=== PATIENT | female | born 1990 | race Caucasian/White ===

== ENCOUNTER 2016-11-09 18:00 | Emergency (ER) | payer OTHER, MEDICAID ==
--- NOTE | 2016-11-09 18:49 | ER Document Report ---
ED Medical Screen (RME) - General Stated Complaint: ABDOMINAL PAIN Time seen by provider: 18:44 Mode of Arrival: Ambulatory Information source: Patient Notes: 25-year-old female presents to ED for pelvic pain for 2 days. She states she has IUD and she can visualize strings hanging out. She has a pinch in her pelvic area. She denies any frequency urgency or pain with urination. Denies any nausea vomiting or diarrhea. Denies any vaginal bleeding or fever. Last menstrual period 10/18/2016. I have greeted and performed a rapid initial assessment of this patient. A comprehensive ED assessment and evaluation of the patient, analysis of test results and completion of medical decision making process will be conducted by an additional ED providers. TRAVEL OUTSIDE OF THE [place] IN LAST 30 DAYS: No - Related Data Allergies/Adverse Reactions: amoxicillin [Amoxicillin] Allergy (Severe, Verified 11/09/16 18:43) Anaphylaxis cefaclor [From Ceclor] Allergy (Severe, Verified 11/09/16 18:43) Anaphylaxis erythromycin base [Erythromycin Base] Allergy (Severe, Verified 11/09/16 18:43) Anaphylaxis Penicillins Allergy (Severe, Verified 11/09/16 18:43) Anaphylaxis latex [Latex] Allergy (Verified 11/09/16 18:43) ondansetron HCl [From Zofran] Allergy (Verified 11/09/16 18:43) Hives meperidine HCl [From Demerol] Adverse Reaction (Mild, Verified 11/09/16 18:43) Abnormal behavior Past Medical History Neurological Medical History: Reports: Hx Migraine, Hx Seizures Renal/ Medical History: Reports: Hx Ovarian Cysts Skin Medical History: Reports Hx Cellulitis, Reports Hx MRSA Infectious Medical History: Reports: Hx MRSA Past Surgical History: Reports: Hx Oral Surgery - wisdom teeth, Hx Tonsillectomy - Immunizations Immunizations up to date: No Hx Diphtheria, Pertussis, Tetanus Vaccination: Yes - UTD Physical Exam - Vital signs Vitals: Temp Pulse Resp BP Pulse Ox 97.9 F 79 16 119/77 98 11/09/16 18:12 11/09/16 18:12 11/09/16 18:12 11/09/16 18:12 11/09/16 18:12 Course - Vital Signs Vital signs: Temp Pulse Resp BP Pulse Ox 97.9 F 79 16 119/77 98 11/09/16 18:12 11/09/16 18:12 11/09/16 18:12 11/09/16 18:12 11/09/16 18:12
[2016-11-09 19:24] LABS: APPEARANCE,URINE CLEAR; BILIRUBIN,URINE NEGATIVE (NEGATIVE); GLUCOSE, URINE NEGATIVE (NEGATIVE); KETONES,URINE NEGATIVE (NEGATIVE); LEUKOCYTE ESTERASE,URINE NEGATIVE (NEGATIVE); NITRITE,URINE NEGATIVE (NEGATIVE); PROTEIN,URINE NEGATIVE (NEGATIVE); URINE SPECIFIC GRAVITY 1.021; UROBILINOGEN,URINE NEGATIVE mg/dL (<2.0)
[2016-11-09 19:25] LABS: ABSOLUTE EOSINOPHILS # (AUTO) 0.1 10^3/uL (0.0-0.6); ABSOLUTE LYMPHOCYTES (AUTO) 2.4 10^3/uL (0.5-4.7); ABSOLUTE MONOCYTES (AUTO) 0.4 10^3/uL (0.1-1.4); ABSOLUTE NEUT (AUTO) 4.3 10^3/uL (1.7-8.2); BASOPHILS % (AUTO) 0.6 % (0-2); EOSINOPHILS % (AUTO) 1.4 % (0-6); HEMATOCRIT 37.7 % (36.0-47.0); HGB HCT DIFFERENCE 1.3; LYMPHOCYTES % (AUTO) 33.5 % (13-45); MEAN CORPUSCULAR HEMOGLOBIN 30.3 pg (27.0-33.4); MEAN CORPUSCULAR HGB CONC 34.5 g/dL (32.0-36.0); MEAN CORPUSCULAR VOLUME 88 fl (80-97); MONOCYTES % (AUTO) 5.3 % (3-13); RED CELL DISTRIBUTION WIDTH 13.3 % (11.5-14.0); SEGMENTED NEUTROPHILS % (AUTO) 59.2 % (42-78); WHITE BLOOD COUNT 7.2 10^3/uL (4.0-10.5)
[2016-11-09 19:52] LABS: ALANINE AMINOTRANSFERASE 53 U/L (9-52); ALBUMIN 4.5 g/dL (3.5-5.0); ALKALINE PHOSPHATASE 97 U/L (38-126); ANION GAP 11 (5-19); ASPARTATE AMINO TRANSFERASE 32 U/L (14-36); BILIRUBIN,TOTAL 0.4 mg/dL (0.2-1.3); BLOOD UREA NITROGEN 15 mg/dL (7-20); CALCIUM 10.2 mg/dL (8.4-10.2); CARBON DIOXIDE 23 mmol/L (22-30); CHLORIDE 106 mmol/L (98-107); CREATININE RESULT 0.75 mg/dL (0.52-1.25); GLUCOSE 89 mg/dL (75-110); POTASSIUM 4.2 mmol/L (3.6-5.0); SODIUM 140.2 mmol/L (137-145); TOTAL PROTEIN 7.4 g/dL (6.3-8.2)
--- NOTE | 2016-11-09 22:57 | ER Document Report ---
ED General - General Chief Complaint: Pelvic Pain Stated Complaint: ABDOMINAL PAIN Time seen by provider: 22:51 - was ventilating Mode of Arrival: Ambulatory Information source: Patient TRAVEL OUTSIDE OF THE [place] IN LAST 30 DAYS: No - HPI Notes: Patient presents with report that she gave on 06/23/2016 and had an IUD placed on 08/24/16. She states that there was a moderate amount of bleeding that occurred when the IUD was placed in the bleeding persisted for little over a month and then she noticed for the last month that she's had a pinching pain occasionally down in the lower pelvic area intermittently. She denies any intercourse since giving . She has had previous IUDs after her other 2 pregnancies and has had 3 vaginal births without other complications. She states that this morning she noticed what felt like the string from the IUD coming out of the vaginal area and she questions whether not the IUD is been disrupted. She denies any other abdominal pain besides mild suprapubic pinching. She reports no fever, chills, vaginal discharge, constipation, diarrhea. - Related Data Allergies/Adverse Reactions: amoxicillin [Amoxicillin] Allergy (Severe, Verified 11/09/16 18:43) Anaphylaxis cefaclor [From Ceclor] Allergy (Severe, Verified 11/09/16 18:43) Anaphylaxis erythromycin base [Erythromycin Base] Allergy (Severe, Verified 11/09/16 18:43) Anaphylaxis Penicillins Allergy (Severe, Verified 11/09/16 18:43) Anaphylaxis latex [Latex] Allergy (Verified 11/09/16 18:43) ondansetron HCl [From Zofran] Allergy (Verified 11/09/16 18:43) Hives meperidine HCl [From Demerol] Adverse Reaction (Mild, Verified 11/09/16 18:43) Abnormal behavior Past Medical History - General Information source: Patient - Social History Smoking Status: Never Smoker Chew tobacco use (# tins/day): No Frequency of alcohol use: None Drug Abuse: None Family History: Arthritis, CAD, CVA, DM, Hyperlipidemia, Hypertension, Malignancy Patient has suicidal ideation: No Patient has homicidal ideation: No Neurological Medical History: Reports: Hx Migraine, Hx Seizures Renal/ Medical History: Reports: Hx Ovarian Cysts. Denies: Hx Peritoneal Dialysis Skin Medical History: Reports Hx Cellulitis, Reports Hx MRSA Infectious Medical History: Reports: Hx MRSA Past Surgical History: Reports: Hx Oral Surgery - wisdom teeth, Hx Tonsillectomy - Immunizations Immunizations up to date: No Hx Diphtheria, Pertussis, Tetanus Vaccination: Yes - UTD Review of Systems - Review of Systems Notes: REVIEW OF SYSTEMS: CONSTITUTIONAL : Denies fever, chills, or sweats. Denies recent illness. EENT: Denies eye, ear, throat, or mouth pain or symptoms. Denies nasal or sinus congestion or discharge. Denies throat, tongue, or mouth swelling or difficulty swallowing. CARDIOVASCULAR: Denies chest pain. Denies palpitations or racing or irregular heart beat. Denies ankle edema. RESPIRATORY: Denies cough, cold, or chest congestion. Denies shortness of breath, difficulty breathing, or wheezing. GASTROINTESTINAL: Denies distention. Denies nausea, vomiting, or diarrhea. Denies blood in vomitus, stools, or per rectum. Denies black, tarry stools. Denies constipation. GENITOURINARY: Denies difficulty urinating, painful urination, burning, frequency, blood in urine, or discharge. FEMALE GENITOURINARY: Denies vaginal bleeding, heavy or abnormal periods, irregular periods. Denies vaginal discharge or odor. MUSCULOSKELETAL: Denies back or neck pain or stiffness. Denies joint pain or swelling. SKIN: Denies rash, lesions or sores. HEMATOLOGIC : Denies easy bruising or bleeding. LYMPHATIC: Denies swollen, enlarged glands. NEUROLOGICAL: Denies confusion or altered mental status. Denies passing out or loss of consciousness. Denies dizziness or lightheadedness. Denies headache. Denies weakness or paralysis or loss of use of either side. Denies problems with gait or speech. Denies sensory loss, numbness, or tingling. Denies seizures. PSYCHIATRIC: Denies anxiety or stress. Denies depression, suicidal ideation, or homicidal ideation. ALL OTHER SYSTEMS REVIEWED AND NEGATIVE. Dictation was performed using [employer] voice recognition software Physical Exam - Vital signs Vitals: Temp Pulse Resp BP Pulse Ox 97.9 F 79 16 119/77 98 11/09/16 18:12 11/09/16 18:12 11/09/16 18:12 11/09/16 18:12 11/09/16 18:12 - Notes Notes: PHYSICAL EXAMINATION: GENERAL: Well-appearing, well-nourished and in no acute distress. HEAD: Atraumatic, normocephalic. EYES: Pupils equal round and reactive to light, extraocular movements intact, conjunctiva are normal. ENT: Nares patent, oropharynx clear without exudates. Moist mucous membranes. NECK: Normal range of motion, supple without lymphadenopathy LUNGS: Breath sounds clear to auscultation bilaterally and equal. No wheezes rales or rhonchi. HEART: Regular rate and rhythm without murmurs ABDOMEN: Soft nondistended abdomen. No guarding, no rebound. No masses appreciated. Very mild suprapubic discomfort noted on exam. Female : Cervix is benign. There is minimal clear discharge noted. There is mild cervical motion tenderness. The patient does have IUD line which is somewhat long and does extend to the edge of the vaginal opening, but otherwise is appropriate and location. No adnexal mass or tenderness noted. Normal external female genitalia noted otherwise. Musculoskeletal: Normal range of motion, no pitting or edema. No cyanosis. NEUROLOGICAL: Cranial nerves grossly intact. Normal speech, normal gait. Normal sensory, motor exams PSYCH: Normal mood, normal affect. SKIN: Warm, Dry, normal turgor, no rashes or lesions noted. Course - Re-evaluation Re-evalutation: 11/10/16 01:11 Patient was given doxycycline by mouth to cover for potential PID. Gonorrhea chlamydial test was taken. No evidence for UTI. Ultrasound showed no significant ovarian pathology and showed appropriate location of the IUD. There is no suggestion for pelvic breech or partial dislocation. No evidence for anemia, sepsis, electrolyte imbalance or diabetes. - Vital Signs Vital signs: Temp Pulse Resp BP Pulse Ox 97.9 F 79 16 119/77 98 11/09/16 18:12 11/09/16 18:12 11/09/16 18:12 11/09/16 18:12 11/09/16 18:12 - Laboratory Result Diagrams: 11/09/16 18:54 11/09/16 18:54 Laboratory results interpreted by me: 11/09/16 18:54 ALT 53 H Discharge - Discharge Clinical Impression: PID (acute pelvic inflammatory disease) Condition: Stable Disposition: HOME, SELF-CARE Instructions: Antibiotic Therapy ([facility]), Doxycycline ([facility]), Pelvic Inflammatory Disease ([facility]) Additional Instructions: Return to the ED in case of fever, severe pain. Do not breast-feed while taking doxycycline. Prescriptions: Naproxen 500 mg PO Q12HP PRN #30 tablet PRN Reason: Doxycycline Hyclate 100 mg PO BID #20 capsule
[2016-11-10] MEDS ORDERED: DOXYCYCLINE HYCLATE 100 MG TABLET PO ONE (01:09)
[2016-11-10 01:34] VITALS: BP 121/75
[2016-11-10 02:42] LABS: CHLAM PCR NOT DETECTED (NOT DETECT)
== END 2016-11-10 01:25 | disposition home or self-care (01) ==
LOC: ER 18:00
DX: N73.0 Acute parametritis and pelvic cellulitis (principal); R10.2 Pelvic and perineal pain; Z97.5 Presence of (intrauterine) contraceptive device; Z88.8 Allergy status to other drugs, medicaments and biological substances; Z87.892 Personal history of anaphylaxis; Z88.1 Allergy status to other antibiotic agents; Z88.0 Allergy status to penicillin; Z91.040 Latex allergy status; Z87.42 Personal history of other diseases of the female genital tract; Z86.14 Personal history of Methicillin resistant Staphylococcus aureus infection
CPT/HCPCS: 36415; 76856; 80053; 81001; 84703; 85025; 87491; 87591; 99284

== ENCOUNTER 2018-01-14 15:28 | Emergency (ER) | payer MEDICAID, OTHER ==
--- NOTE | 2018-01-14 15:54 | ER Document Report ---
ED Medical Screen (RME) - General Chief Complaint: Breast Lump Stated Complaint: LEFT BREAST PROBLEM Time Seen by Provider: 01/14/18 15:54 Mode of Arrival: Ambulatory Information source: Patient Notes: 27-year-old well-appearing female presents to the emergency room with some swelling and in the left axilla/lateral breast area. She denies fever, chills, nausea vomiting TRAVEL OUTSIDE OF THE [place] IN LAST 30 DAYS: No - Related Data Allergies/Adverse Reactions: amoxicillin [Amoxicillin] Allergy (Severe, Verified 01/14/18 15:29) Anaphylaxis cefaclor [From Ceclor] Allergy (Severe, Verified 01/14/18 15:29) Anaphylaxis erythromycin base [Erythromycin Base] Allergy (Severe, Verified 01/14/18 15:29) Anaphylaxis Penicillins Allergy (Severe, Verified 01/14/18 15:29) Anaphylaxis latex [Latex] Allergy (Verified 01/14/18 15:29) ondansetron HCl [From Zofran] Allergy (Verified 01/14/18 15:29) Hives meperidine HCl [From Demerol] Adverse Reaction (Mild, Verified 01/14/18 15:29) Abnormal behavior Past Medical History - Social History Chew tobacco use (# tins/day): No Frequency of alcohol use: None Drug Abuse: None Neurological Medical History: Reports: Hx Migraine, Hx Seizures Renal/ Medical History: Reports: Hx Ovarian Cysts. Denies: Hx Peritoneal Dialysis Skin Medical History: Reports Hx Cellulitis, Reports Hx MRSA Infectious Medical History: Reports: Hx MRSA Past Surgical History: Reports: Hx Oral Surgery - wisdom teeth, Hx Tonsillectomy - Immunizations Immunizations up to date: No Hx Diphtheria, Pertussis, Tetanus Vaccination: Yes - UTD Physical Exam - Vital signs Vitals: Temp Pulse Resp BP Pulse Ox 98.9 F 92 18 133/82 H 97 01/14/18 15:33 01/14/18 15:33 01/14/18 15:33 01/14/18 15:33 01/14/18 15:33 Course - Vital Signs Vital signs: Temp Pulse Resp BP Pulse Ox 98.9 F 92 18 133/82 H 97 01/14/18 15:33 01/14/18 15:33 01/14/18 15:33 01/14/18 15:33 01/14/18 15:33
[2018-01-14] MEDS ORDERED: IBUPROFEN 800 MG TABLET PO ONE (16:31)
--- NOTE | 2018-01-14 16:46 | ER Document Report ---
ED General - General Chief Complaint: Breast Lump Stated Complaint: LEFT BREAST PROBLEM Time Seen by Provider: 01/14/18 15:54 Mode of Arrival: Ambulatory TRAVEL OUTSIDE OF THE [place] IN LAST 30 DAYS: No - HPI Notes: Patient is a 27-year-old female presents to the emergency department with report of a 6 month history of a mass in the lateral superior quadrant of the breast almost extending to the axillary region. The patient states that several days ago she brought her arm in and may have put pressure upon the mass and she has had increasing pain through the area of the lateral superior breast extending into the lateral aspect of the breast. She denies any erythema to the region. She reports no fever or chills or chest pain or nausea or vomiting or dyspnea. Patient does report a 10 pound weight loss unexplained. There is a strong family history of breast cancer on the patient's father's side , stating that the father is currently battling breast cancer now and the paternal grand mother is currently dying from breast cancer. She has been told that the breast cancer is receptor positive, but she does not know other specifics. No cat scratches or exposure to cats. No lesions of the skin or any problem with the left upper extremity or fingernails. - Related Data Allergies/Adverse Reactions: amoxicillin [Amoxicillin] Allergy (Severe, Verified 01/14/18 15:29) Anaphylaxis cefaclor [From Ceclor] Allergy (Severe, Verified 01/14/18 15:29) Anaphylaxis erythromycin base [Erythromycin Base] Allergy (Severe, Verified 01/14/18 15:29) Anaphylaxis Penicillins Allergy (Severe, Verified 01/14/18 15:29) Anaphylaxis latex [Latex] Allergy (Verified 01/14/18 15:29) ondansetron HCl [From Zofran] Allergy (Verified 01/14/18 15:29) Hives meperidine HCl [From Demerol] Adverse Reaction (Mild, Verified 01/14/18 15:29) Abnormal behavior Past Medical History - General Information source: Patient - Social History Smoking Status: Former Smoker Chew tobacco use (# tins/day): No Frequency of alcohol use: None Drug Abuse: None Lives with: Family Family History: Arthritis, CAD, CVA, DM, Hyperlipidemia, Hypertension, Malignancy, Other - Breast cancer history see above. Patient has suicidal ideation: No Patient has homicidal ideation: No Neurological Medical History: Reports: Hx Migraine, Hx Seizures Renal/ Medical History: Reports: Hx Ovarian Cysts. Denies: Hx Peritoneal Dialysis Skin Medical History: Reports Hx Cellulitis, Reports Hx MRSA Infectious Medical History: Reports: Hx MRSA Past Surgical History: Reports: Hx Oral Surgery - wisdom teeth, Hx Tonsillectomy - Immunizations Immunizations up to date: No Hx Diphtheria, Pertussis, Tetanus Vaccination: Yes - UTD Review of Systems - Review of Systems Notes: REVIEW OF SYSTEMS: CONSTITUTIONAL : Denies fever, chills, or sweats. Minor weight loss. EENT: Denies eye, ear, throat, or mouth pain or symptoms. Denies nasal or sinus congestion or discharge. Denies throat, tongue, or mouth swelling or difficulty swallowing. CARDIOVASCULAR: Denies chest pain. Denies palpitations or racing or irregular heart beat. Denies ankle edema. RESPIRATORY: Denies cough, cold, or chest congestion. Denies shortness of breath, difficulty breathing, or wheezing. GASTROINTESTINAL: Denies abdominal pain or distention. Denies nausea, vomiting , or diarrhea. Denies blood in vomitus, stools, or per rectum. Denies black, tarry stools. Denies constipation. GENITOURINARY: Denies difficulty urinating, painful urination, burning, frequency, blood in urine, or discharge. FEMALE GENITOURINARY: Denies vaginal bleeding, heavy or abnormal periods, irregular periods. Denies vaginal discharge or odor. MUSCULOSKELETAL: Denies back or neck pain or stiffness. Denies joint pain or swelling. SKIN: Denies rash, lesions or sores. HEMATOLOGIC : Denies easy bruising or bleeding. LYMPHATIC: No other lymph node swelling besides the lateral breast into the axillary region. NEUROLOGICAL: Denies confusion or altered mental status. Denies passing out or loss of consciousness. Denies dizziness or lightheadedness. Denies headache. Denies weakness or paralysis or loss of use of either side. Denies problems with gait or speech. Denies sensory loss, numbness, or tingling. Denies seizures. PSYCHIATRIC: Denies anxiety or stress. Denies depression, suicidal ideation, or homicidal ideation. ALL OTHER SYSTEMS REVIEWED AND NEGATIVE. Dictation was performed using [employer] voice recognition software Physical Exam - Vital signs Vitals: Temp Pulse Resp BP Pulse Ox 98.9 F 92 18 133/82 H 97 01/14/18 15:33 01/14/18 15:33 01/14/18 15:33 01/14/18 15:33 01/14/18 15:33 - Notes Notes: PHYSICAL EXAMINATION: GENERAL: Well-appearing, well-nourished and in no acute distress. HEAD: Atraumatic, normocephalic. EYES: Pupils equal round and reactive to light, extraocular movements intact, conjunctiva are normal. ENT: Nares patent, oropharynx clear without exudates. Moist mucous membranes. NECK: Normal range of motion, supple without lymphadenopathy LUNGS: Breath sounds clear to auscultation bilaterally and equal. No wheezes rales or rhonchi. HEART: Regular rate and rhythm without murmurs ABDOMEN: Soft, nontender, nondistended abdomen. No guarding, no rebound. No masses appreciated. Female : deferred Musculoskeletal: Normal range of motion, no pitting or edema. No cyanosis. NEUROLOGICAL: Cranial nerves grossly intact. Normal speech, normal gait. Normal sensory, motor exams PSYCH: Normal mood, normal affect. SKIN: Warm, Dry, normal turgor, no rashes or lesions noted. No lesions on the patient's left upper extremity. The patient does have some mild pain to the left lateral breast on exam, but no obvious lesions located the year but there is what appears to be a mass versus prominence of the breast tissue left lateral tail of the breast extending into the axillary region. There is no erythema to this location. There is no crepitance or induration. No other breast lesions or masses identified. No nipple discharge or dimpling. Examination on the right side shows no mass or other abnormality. No supraclavicular lymphadenopathy no supratrochlear adenopathy. No other adenopathy identified anywhere. Course - Re-evaluation Re-evalutation: 01/14/18 18:50 Lab work and other studies were all negative on the patient. CT scan was negative. Given the patient's risk factors for breast cancer due to her family history, it was recommended to the patient that she has a follow-up mammogram performed. There is no evidence for lymphomatous state or obvious cancer or mass or sepsis or abscess. There is no erythema to the region. We will cover the patient with clindamycin and ibuprofen and limit motion of the arm and have her follow-up with her regular practitioner within 2 weeks. - Vital Signs Vital signs: Temp Pulse Resp BP Pulse Ox 98.9 F 92 18 133/82 H 97 01/14/18 15:33 01/14/18 15:33 01/14/18 15:33 01/14/18 15:33 01/14/18 15:33 - Laboratory Result Diagrams: 01/14/18 17:35 01/14/18 17:35 Discharge - Discharge Clinical Impression: Lymphadenopathy, axillary Condition: Stable Disposition: HOME, SELF-CARE Instructions: Lymphadenopathy ([facility]), Family Physicians / Practices Additional Instructions: You need a follow-up mammogram. Return to the emergency department in case of fever, redness, worsening swelling , severe pain. Avoid heavy lifting and other activity with the left arm until the swelling resolves. Prescriptions: Clindamycin HCl 300 mg PO TID #24 capsule Ibuprofen [Motrin 800 mg Tablet] 800 mg PO Q8H PRN #30 tab PRN Reason:
[2018-01-14 17:48] LABS: ABSOLUTE EOSINOPHILS # (AUTO) 0.1 10^3/uL (0.0-0.6); ABSOLUTE LYMPHOCYTES (AUTO) 1.9 10^3/uL (0.5-4.7); ABSOLUTE MONOCYTES (AUTO) 0.3 10^3/uL (0.1-1.4); ABSOLUTE NEUT (AUTO) 5.2 10^3/uL (1.7-8.2); BASOPHILS % (AUTO) 0.6 % (0-2); EOSINOPHILS % (AUTO) 1.2 % (0-6); HEMATOCRIT 37.8 % (36.0-47.0); LYMPHOCYTES % (AUTO) 25.4 % (13-45); MEAN CORPUSCULAR HEMOGLOBIN 29.9 pg (27.0-33.4); MEAN CORPUSCULAR HGB CONC 34.4 g/dL (32.0-36.0); MEAN CORPUSCULAR VOLUME 87 fl (80-97); MONOCYTES % (AUTO) 4.4 % (3-13); PLATELET COUNT 270 10^3/uL (150-450); RED BLOOD COUNT 4.36 10^6/uL (3.72-5.28); SEGMENTED NEUTROPHILS % (AUTO) 68.4 % (42-78); TOTAL CELLS COUNTED % (AUTO) 100 %; WHITE BLOOD COUNT 7.7 10^3/uL (4.0-10.5)
[2018-01-14 18:04] LABS: ALANINE AMINOTRANSFERASE 29 U/L (9-52); ALBUMIN 4.4 g/dL (3.5-5.0); ALKALINE PHOSPHATASE 98 U/L (38-126); ANION GAP 11 (5-19); ASPARTATE AMINO TRANSFERASE 20 U/L (14-36); BILIRUBIN,DIRECT 0.2 mg/dL (0.0-0.4); BILIRUBIN,TOTAL 0.2 mg/dL (0.2-1.3); BLOOD UREA NITROGEN 16 mg/dL (7-20); CALCIUM 9.8 mg/dL (8.4-10.2); CARBON DIOXIDE 26 mmol/L (22-30); CHLORIDE 106 mmol/L (98-107); GLUCOSE 89 mg/dL (75-110); POTASSIUM 4.1 mmol/L (3.6-5.0); SODIUM 143.2 mmol/L (137-145); TOTAL PROTEIN 7.2 g/dL (6.3-8.2)
--- NOTE | 2018-01-14 18:12 | RADIOLOGY REPORT (SQ) ---
EXAM DESCRIPTION: CT CHEST WITH COMPLETED DATE/TIME: 01/14/2018 6:02 pm REASON FOR STUDY: L axillary / lateral L breast mass COMPARISON: None. TECHNIQUE: CT scan of the chest performed using helical scanning technique with dynamic intravenous contrast injection. Images reviewed with lung, soft tissue and bone windows. Reconstructed coronal and sagittal MPR images reviewed. All images stored on PACS. All CT scanners at this facility use dose modulation, iterative reconstruction, and/or weight based d osing when appropriate to reduce radiation dose to as low as reasonably achievable (ALARA). [facility]: Dose Right [facility]: CareDose [facility]: Dose Right [facility]: Teradose 4D [facility]: [employer] Math CONTRAST TYPE AND DOSE: 100 mL Isovue 370- low osmolar. RENAL FUNCTION: None required. The patient is less than 50 years old. RADIATION DOSE: CT Rad equipment meets quality standard of care and radiation dose reduction techniq ues were employed. CTDIvol: 19.1 mGy. DLP: 715 mGy-cm. . LIMITATIONS: None. FINDINGS: LUNGS AND PLEURA: No opacities, nodules, masses. No pneumothorax. No effusions. HILAR AND MEDIASTINAL STRUCTURES: No identified masses or abnormal nodes. HEART AND VASCULAR STRUCTURES: No aneurysm or dissection. No central pulmonary emboli. No pericardi al effusion. HARDWARE: None in the chest. UPPER ABDOMEN: No significant findings. Limited exam. THYROID AND OTHER SOFT TISSUES: No masses. No adenopathy. BONES: No significant finding. OTHER: No other significant finding. IMPRESSION: No abnormality identified. TECHNICAL DOCUMENTATION: JOB ID: [id number] [place]-72 Quality ID # [id number]: Final reports with documentation of one or more dose reduction techniques (e.g., Au tomated exposure control, adjustment of the mA and/or kV according to patient size, use of iterative reconstruction technique) 2010 [employer]- All Rights Reserved Reading location - IP/workstation name: [employer]
[2018-01-14 19:12] VITALS: BP 118/65
== END 2018-01-14 19:12 | disposition home or self-care (01) ==
LOC: ER 15:28
DX: R59.0 Localized enlarged lymph nodes (principal); Z87.891 Personal history of nicotine dependence
CPT/HCPCS: 99284; 36415; 85025; 81025; 80053; 71260; J3490

== ENCOUNTER 2018-11-04 19:06 | Emergency (ER) | payer MEDICAID, OTHER ==
--- NOTE | 2018-11-04 21:30 | ER Document Report ---
ED Medical Screen (RME) - General Chief Complaint: Passed Out Prior to Arrival Stated Complaint: SYNCOPE Time Seen by Provider: 11/04/18 21:19 Notes: Patient is a 27-year-old female presents to the emergency department for near syncopal episode. States she felt very lightheaded and dizzy and went to sit down. States she missed the chair and her friend caught her lying her down on the ground. Patient states she continued to feel very dizzy and lightheaded. Patient states at this point time her only complaint is generalized blurred vision and a headache. Patient states she does have a past medical history of seizures but is denying any seizure-like activity. GENERAL: Alert, interacts well. No acute distress. EXTREMITIES: Moves all 4 extremities spontaneously. No edema, normal radial and dorsalis pedis pulses bilaterally. No cyanosis. 5 out of 5 strength all 4 extremities NEUROLOGICAL: Alert and oriented x3. Normal speech. I have greeted and performed a rapid initial assessment of this patient. A comprehensive ED assessment and evaluation of the patient, analysis of test results and completion of the medical decision making process will be conducted by additional ED providers. TRAVEL OUTSIDE OF THE [place] IN LAST 30 DAYS: No - Related Data Allergies/Adverse Reactions: amoxicillin [Amoxicillin] Allergy (Severe, Verified 01/14/18 15:29) Anaphylaxis cefaclor [From Ceclor] Allergy (Severe, Verified 01/14/18 15:29) Anaphylaxis erythromycin base [Erythromycin Base] Allergy (Severe, Verified 01/14/18 15:29) Anaphylaxis Penicillins Allergy (Severe, Verified 01/14/18 15:29) Anaphylaxis latex [Latex] Allergy (Verified 01/14/18 15:29) ondansetron HCl [From Zofran] Allergy (Verified 01/14/18 15:29) Hives meperidine HCl [From Demerol] Adverse Reaction (Mild, Verified 01/14/18 15:29) Abnormal behavior Past Medical History Neurological Medical History: Reports: Hx Migraine, Hx Seizures Renal/ Medical History: Reports: Hx Ovarian Cysts. Denies: Hx Peritoneal Dialysis Skin Medical History: Reports Hx Cellulitis, Reports Hx MRSA Infectious Medical History: Reports: Hx MRSA Past Surgical History: Reports: Hx Oral Surgery - wisdom teeth, Hx Tonsillectomy - Immunizations Immunizations up to date: No Hx Diphtheria, Pertussis, Tetanus Vaccination: Yes - UTD
[2018-11-04 22:45] LABS: APPEARANCE,URINE SLIGHTLY-CLOUDY; BILIRUBIN,URINE NEGATIVE (NEGATIVE); COLOR,URINE YELLOW; GLUCOSE, URINE NEGATIVE (NEGATIVE); KETONES,URINE NEGATIVE (NEGATIVE); LEUKOCYTE ESTERASE,URINE MODERATE (NEGATIVE); NITRITE,URINE NEGATIVE (NEGATIVE); PROTEIN,URINE NEGATIVE (NEGATIVE); URINE SPECIFIC GRAVITY 1.027; UROBILINOGEN,URINE NEGATIVE mg/dL (<2.0)
--- NOTE | 2018-11-04 22:50 | ER Document Report ---
ED General - General Chief Complaint: Passed Out Prior to Arrival Stated Complaint: SYNCOPE Time Seen by Provider: 11/04/18 21:19 Primary Care Provider: SUSU SIMON MD [NO LOCAL MD] - Follow up in 3-5 days Notes: Patient is a 27-year-old female who presents with complaint of a near syncopal episode. She was walking and then started to pass out and go down. She says she did not pass out all the way. She said that for 2 weeks she has had a ongoing headache. Is gradually worsened over the course of 2 weeks. Is behind her eyes. She is also noticed blurred vision with both near and far vision of both eyes. She does wear glasses. She says the same glasses she is been wearing since she was 18 and is not had her eyes rechecked. No focal weakness or numbness into the extremities. No chest pain. No recent trauma or injuries to the head. No neck pain or stiffness. No other complaints at this time. No recent fevers or infections. TRAVEL OUTSIDE OF THE [place] IN LAST 30 DAYS: No - Related Data Allergies/Adverse Reactions: amoxicillin [Amoxicillin] Allergy (Severe, Verified 01/14/18 15:29) Anaphylaxis cefaclor [From Ceclor] Allergy (Severe, Verified 01/14/18 15:29) Anaphylaxis erythromycin base [Erythromycin Base] Allergy (Severe, Verified 01/14/18 15:29) Anaphylaxis Penicillins Allergy (Severe, Verified 01/14/18 15:29) Anaphylaxis latex [Latex] Allergy (Verified 01/14/18 15:29) ondansetron HCl [From Zofran] Allergy (Verified 01/14/18 15:29) Hives meperidine HCl [From Demerol] Adverse Reaction (Mild, Verified 01/14/18 15:29) Abnormal behavior Past Medical History - Social History Smoking Status: Unknown if Ever Smoked Frequency of alcohol use: None Drug Abuse: None Family History: Arthritis, CAD, CVA, DM, Hyperlipidemia, Hypertension, Malignancy, Other - Breast cancer history see above. Patient has suicidal ideation: No Patient has homicidal ideation: No Neurological Medical History: Reports: Hx Migraine, Hx Seizures Renal/ Medical History: Reports: Hx Ovarian Cysts. Denies: Hx Peritoneal Dialysis Skin Medical History: Reports Hx Cellulitis, Reports Hx MRSA Infectious Medical History: Reports: Hx MRSA Past Surgical History: Reports: Hx Oral Surgery - wisdom teeth, Hx Tonsillectomy - Immunizations Immunizations up to date: No Hx Diphtheria, Pertussis, Tetanus Vaccination: Yes - UTD Review of Systems - Review of Systems Notes: My Normal Review Basic REVIEW OF SYSTEMS: CONSTITUTIONAL : Denies fever, chills, or sweats. Denies recent illness. EENT: Blurred vision MUSCULOSKELETAL: Denies neck or back pain or joint pain or swelling. SKIN: Denies rash or skin lesions NEUROLOGICAL: Near syncopal episode. Has a headache. denies weakness or p aralysis or loss of use of either side. Denies problems with gait or speech. Denies sensory or motor loss. ALL OTHER SYSTEMS REVIEWED AND NEGATIVE. Physical Exam - Vital signs Vitals: Temp Pulse Resp BP Pulse Ox 98.1 F 73 16 125/86 H 100 11/04/18 20:01 11/04/18 20:01 11/04/18 20:01 11/04/18 20:01 11/04/18 20:01 - Notes Notes: General Appearance: Well nourished, alert, cooperative, no acute distress, no obvious discomfort. Well-appearing. Vitals: reviewed, See vital signs table. Head: no swelling or tenderness to the head Eyes: PERRL, EOMI, Conjuctiva clear Mouth: No decreasd moisture Throat: No tonsillar inflammation, No airway obstruction, No lymphadenopathy Neck: Supple, no neck tenderness Lungs: No wheezing, No rales, No rhonci, No accessory muscle use, good air exchange bilaterally. Heart: Normal rate, Regular rythm, No murmur, no rub Abdomen: Normal BS, soft, No rigidity, No abdominal tenderness, No guarding, no rebound, no abdominal masses, no organomegaly Extremities: strength 5/5 in all extremities, good pulses in all extremities, no swelling or tenderness in the extremities, no edema. Skin: warm, dry, appropriate color, no rash Neuro: speech clear, oriented x 3, normal affect, responds appropriately to questions. Cranial nerves II through XII are intact except for some blurred vision. Distal sensation intact in all extremities. Normal gait. Normal strength in all extremities. Normal coordination of movement of extremities. Course - Re-evaluation Re-evalutation: 11/05/18 01:29 Lumbar puncture performed. Patient initially did have will be a traumatic tap that there is a small of blood initially when she is of first came out as it was the third attempt of getting the patient's lumbar puncture. This quickly cleared. Opening pressure was 25. Drained off approximately 14 mL's of CSF. This brought her pressure down to 20. Patient now lying flat on her back is comfortable at this time. No complications. 11/05/18 01:29 11/05/18 02:54 11/05/18 03:00 Patient CSF on tube 1 did show large amount of red blood cells as expected due to what I expect was a traumatic tap. By tube 4 red blood cells were less than 10. I do not suspect subarachnoid hemorrhage. CT scan is normal. Her opening pressure was 25. This is at the very borderline for potential benign intracranial hypertension however is not at a level high and therefore expect it to be causing her to have blurred vision. She says her headache is just a little bit improved after draining the fluid and pressure down to 20. She is seen by Dr. Simon in the past due to history of possible seizures. I will refer her back to Dr. Aldana for continued workup of her headaches. Also encouraged her to see cloth mercerizing supervisor as she has been wearing the same prescription of her glasses for 9 years and therefore this could be contributing to her headache and blurred vision as well. Encouraged her to return to ER medially if she has severe worsening headache, vomiting, or she feels that she is worsening in any way. Patient agrees with plan and will be discharged home. Dictation of this chart was performed using voice recognition software; therefore, there may be some unintended grammatical errors. - Vital Signs Vital signs: Temp Pulse Resp BP Pulse Ox 98.3 F 72 20 137/83 H 100 11/05/18 03:14 11/05/18 03:14 11/05/18 03:14 11/05/18 03:14 11/05/18 03:14 - Laboratory Laboratory results interpreted by me: 11/04/18 22:20 Ur Leukocyte Esterase MODERATE H - EKG Interpretation by Me Additional EKG results interpreted by me: 11/04/18 22:50 EKG is reviewed and interpreted by me. EKG shows normal sinus rhythm with a rate of [address] segment elevation or depression. No ischemic T wave inversions. MN interval, QRS duration, QT intervals are within normal range. No old EKG available for comparison. Procedures - Lumbar Puncture Lumbar puncture Consent obtained: Yes Lumbar puncture pre-procedure: Chloraprep applied Patient position: Lying Needle size: 25 Lumbar puncture location: L3-L4 Anesthetic type: 1% Lidocaine mL's of anesthetic: 5 Amount/type of drainage: 14 clear CSF Number of attempts: 1 Complications: No Discharge - Discharge Clinical Impression: Blurred vision, bilateral, Near syncope Headache Qualifiers: Headache type: unspecified Headache chronicity pattern: unspecified pattern Intractability: intractable Qualified Code(s): R51 - Headache Condition: Good Disposition: HOME, SELF-CARE Additional Instructions: The exact cause of your headaches, blurred vision, and episode where you almost passed out is not 100% clear. CT scan of your head was normal. We did do lumbar puncture to look to see if you have elevated spinal fluid pressure. Your pressure is just slightly elevated but not to the extent that we expect would cause blurred vision. Please follow-up closely with the cloth mercerizing supervisor to have your eyes rechecked to see if you need a change in the prescription of your glasses. Please follow back up with Dr. Simon for reevaluation and further workup of her headaches. Please return to ER if you have worsening headaches, vomiting, recurrent episodes of passing out, or if you feel that you are worse in any way. Do not drive or operate machinery when taking the Fioricet as it can cause some sleepiness. Prescriptions: Butalb/Acetaminophen/Caffeine [Fioricet (50-325-40 mg) Tablet] 1 tab PO Q8HP PRN #10 tab PRN Reason: headache Forms: Return to Work Referrals: SUSU SIMON MD [NO LOCAL MD] - Follow up in 3-5 days
--- NOTE | 2018-11-04 23:00 | RADIOLOGY REPORT (SQ) ---
EXAM DESCRIPTION: CT HEAD WITHOUT IV CONTRAST COMPLETED DATE/TME: 11/04/2018 21:28 CLINICAL HISTORY: 27 years, Female, near syncope Blurred vision COMPARISON: 11/07/2014 CT brain TECHNIQUE: 187 Images stored on PACS. All CT scanners at this facility use dose modulation, iterative reconstruction, and/or weight based dosing when appropriate to reduce radiation dose to as low as reasonably achievable (ALARA). [facility]: Dose Right [facility]: CareDose [facility]: Dose Right [facility]: Teradose 4D [facility]: [employer] LIMITATIONS: None. FINDINGS: The globes are intact. Paranasal sinuses and mastoid air cells are unremarkable. No displaced or depressed skull fracture. No intra or extra-axial hemorrhage. CT is limited for evaluation of acute infarct. No CT evidence for large or territorial acute infarct. No mass or midline shift IMPRESSION: Negative exam TECHNICAL DOCUMENTATION: Quality ID # [id number]: Final reports with documentation of one or more dose reduction techniques (e.g., Automated exposure control, adjustment of the mA and/or kV according to patient size, use of iterative reconstruction technique) copyright 2011 [employer]- All Rights Reserved
[2018-11-04] MEDS ORDERED: NORMAL SALINE 1000 ML 1,000 ML IV ONE (23:01)
[2018-11-04] MEDS ORDERED: LIDOCAINE 1% INJ-PF (10 MG/ML) 30 ML SDV INJ ONE (23:01)
[2018-11-04] MEDS ORDERED: METOCLOPRAMIDE HCL INJ/PF 10 MG/2 ML SDV IV ONE (23:50)
[2018-11-05] MEDS ORDERED: LIDOCAINE 4% TRANSPARENT DRESSING 5 GM KIT TP ONE (00:09)
--- NOTE | 2018-11-05 01:24 | EKG REPORT ---
SEVERITY:- NORMAL ECG - SINUS RHYTHM : Confirmed by: Antoinette Mcneil MD 05-Nov-2018 01:23:55
[2018-11-05 02:30] LABS: APPEARANCE ALL TUBES CLEAR; APPEARANCE TUBE 1 CLEAR; APPEARANCE TUBE 2 CLEAR; APPEARANCE TUBE 3 CLEAR; APPEARANCE TUBE 4 CLEAR; COLOR ALL TUBES COLORLESS; COLOR TUBE 1 COLORLESS; COLOR TUBE 2 COLORLESS; COLOR TUBE 3 COLORLESS; COLOR TUBE 4 COLORLESS; CSF TUBE NUMBER 1
[2018-11-05 02:31] LABS: RED BLOOD CELL,CSF 602 /uL (0-10)
[2018-11-05 02:32] LABS: WHITE BLOOD CELL,CSF 3 /uL (0-5)
[2018-11-05 02:33] LABS: APPEARANCE ALL TUBES CLEAR; APPEARANCE TUBE 1 CLEAR; APPEARANCE TUBE 2 CLEAR; APPEARANCE TUBE 3 CLEAR; APPEARANCE TUBE 4 CLEAR; COLOR ALL TUBES COLORLESS; COLOR TUBE 1 COLORLESS; COLOR TUBE 2 COLORLESS; COLOR TUBE 3 COLORLESS; COLOR TUBE 4 COLORLESS; CSF TUBE NUMBER 4
[2018-11-05 02:37] LABS: RED BLOOD CELL,CSF 8 /uL (0-10)
[2018-11-05 02:38] LABS: WHITE BLOOD CELL,CSF 1 /uL (0-5)
[2018-11-05 03:44] VITALS: BP 137/83
== END 2018-11-05 03:22 | disposition home or self-care (01) ==
LOC: ER 19:06
DX: H53.8 Other visual disturbances (principal); R55 Syncope and collapse; R51 Headache; Z88.0 Allergy status to penicillin; Z88.3 Allergy status to other anti-infective agents; Z91.040 Latex allergy status; Z86.14 Personal history of Methicillin resistant Staphylococcus aureus infection
CPT/HCPCS: 93005; 99284; 96361; 96374; 89050; 81025; 81001; 70450; 93010; 62270; J3490; J2765; J7030

== ENCOUNTER 2018-11-07 20:00 | Emergency (ER) | payer OTHER | END 2018-11-07 21:43 | disposition left against medical advice (07) | LOC: ER 20:00 | DX: Z53.21 Procedure and treatment not carried out due to patient leaving prior to being seen by health care provider (principal) ==

== ENCOUNTER 2018-11-08 12:31 | Emergency (ER) | payer MEDICAID, OTHER ==
[2018-11-08] MEDS ORDERED: NORMAL SALINE 1000 ML 1,000 ML IV ONE (14:54)
--- NOTE | 2018-11-08 14:54 | ER Document Report ---
ED Medical Screen (RME) - General Chief Complaint: Headache Stated Complaint: BACK PAIN Time Seen by Provider: 11/08/18 14:52 TRAVEL OUTSIDE OF THE [place] IN LAST 30 DAYS: No - HPI Notes: 11/08/18 14:53 Patient had a lumbar puncture done in the emergency room on Monday which was 4 days ago. She returned to the emergency room today complaining of severe headache which has been getting worse since after the lumbar puncture. Physical exam shows a mildly obese lady otherwise unremarkable. - Related Data Allergies/Adverse Reactions: amoxicillin [Amoxicillin] Allergy (Severe, Verified 11/08/18 12:50) Anaphylaxis cefaclor [From Ceclor] Allergy (Severe, Verified 11/08/18 12:50) Anaphylaxis erythromycin base [Erythromycin Base] Allergy (Severe, Verified 11/08/18 12:50) Anaphylaxis Penicillins Allergy (Severe, Verified 11/08/18 12:50) Anaphylaxis latex [Latex] Allergy (Verified 11/08/18 12:50) ondansetron HCl [From Zofran] Allergy (Verified 11/08/18 12:50) Hives meperidine HCl [From Demerol] Adverse Reaction (Mild, Verified 11/08/18 12:50) Abnormal behavior Past Medical History Neurological Medical History: Reports: Hx Migraine, Hx Seizures Renal/ Medical History: Reports: Hx Ovarian Cysts. Denies: Hx Peritoneal Dialysis Skin Medical History: Reports Hx Cellulitis, Reports Hx MRSA Infectious Medical History: Reports: Hx MRSA Past Surgical History: Reports: Hx Oral Surgery - wisdom teeth, Hx Tonsillectomy - Immunizations Immunizations up to date: No Hx Diphtheria, Pertussis, Tetanus Vaccination: Yes - UTD Physical Exam - Vital signs Vitals: Temp Pulse Resp BP Pulse Ox 98.4 F 88 18 141/83 H 100 11/08/18 12:52 11/08/18 12:52 11/08/18 12:52 11/08/18 12:52 11/08/18 12:52 Course - Vital Signs Vital signs: Temp Pulse Resp BP Pulse Ox 98.4 F 88 18 141/83 H 100 11/08/18 12:52 11/08/18 12:52 11/08/18 12:52 11/08/18 12:52 11/08/18 12:52
[2018-11-08] MEDS ORDERED: METOCLOPRAMIDE HCL INJ/PF 10 MG/2 ML SDV IV ONE (14:55)
[2018-11-08] MEDS: ACETAMINOPHEN 325 MG TABLET PO ONE ×2 (15:09→16:07)
[2018-11-08 15:39] LABS: ABSOLUTE LYMPHOCYTES (AUTO) 1.4 10^3/uL (0.5-4.7); ABSOLUTE MONOCYTES (AUTO) 0.3 10^3/uL (0.1-1.4); ABSOLUTE NEUT (AUTO) 7.3 10^3/uL (1.7-8.2); BASOPHILS % (AUTO) 0.5 % (0-2); EOSINOPHILS % (AUTO) 0.3 % (0-6); HEMATOCRIT 40.2 % (36.0-47.0); HEMOGLOBIN 13.8 g/dL (12.0-15.5); LYMPHOCYTES % (AUTO) 15.8 % (13-45); MEAN CORPUSCULAR HEMOGLOBIN 29.9 pg (27.0-33.4); MEAN CORPUSCULAR HGB CONC 34.4 g/dL (32.0-36.0); MEAN CORPUSCULAR VOLUME 87 fl (80-97); MONOCYTES % (AUTO) 3.4 % (3-13); PLATELET COUNT 324 10^3/uL (150-450); RED BLOOD COUNT 4.63 10^6/uL (3.72-5.28); RED CELL DISTRIBUTION WIDTH 13.1 % (11.5-14.0); TOTAL CELLS COUNTED % (AUTO) 100 %; WHITE BLOOD COUNT 9.1 10^3/uL (4.0-10.5)
[2018-11-08 15:40] LABS: INTERNATIONAL RATION (INR) 0.97; PROTHROMBIN TIME 13.4 SEC (11.4-15.4)
[2018-11-08 15:53] LABS: ALANINE AMINOTRANSFERASE 28 U/L (9-52); ALBUMIN 5.1 g/dL (3.5-5.0); ALKALINE PHOSPHATASE 100 U/L (38-126); ANION GAP 13 (5-19); ASPARTATE AMINO TRANSFERASE 26 U/L (14-36); BILIRUBIN,DIRECT 0.5 mg/dL (0.0-0.4); BILIRUBIN,TOTAL 0.8 mg/dL (0.2-1.3); BLOOD UREA NITROGEN 19 mg/dL (7-20); CALCIUM 10.3 mg/dL (8.4-10.2); CARBON DIOXIDE 22 mmol/L (22-30); CHLORIDE 106 mmol/L (98-107); GLUCOSE 98 mg/dL (75-110); POTASSIUM 4.3 mmol/L (3.6-5.0); SODIUM 141.2 mmol/L (137-145); TOTAL PROTEIN 8.2 g/dL (6.3-8.2)
[2018-11-08] MEDS ORDERED: ACETAMINOPHEN 325 MG TABLET ONE (16:02)
--- NOTE | 2018-11-08 19:33 | ER Document Report ---
ED Headache - General Chief Complaint: Headache Stated Complaint: BACK PAIN Time Seen by Provider: 11/08/18 14:52 Notes: 27-year-old female patient emergency department chief complaint of headache. Patient had a spinal tap done recently. Every time she sits up she gets a headache. Lying down makes it go away. No fever. Denies any neck stiffness. TRAVEL OUTSIDE OF THE [place] IN LAST 30 DAYS: No - HPI Patient complains to provider of: Headache Onset was: Gradual Timing: Worse Quality of pain: Throbbing Severity: Moderate Pain Level: 4 Associated symptoms: Nausea/vomiting - Related Data Allergies/Adverse Reactions: amoxicillin [Amoxicillin] Allergy (Severe, Verified 11/08/18 12:50) Anaphylaxis cefaclor [From Ceclor] Allergy (Severe, Verified 11/08/18 12:50) Anaphylaxis erythromycin base [Erythromycin Base] Allergy (Severe, Verified 11/08/18 12:50) Anaphylaxis Penicillins Allergy (Severe, Verified 11/08/18 12:50) Anaphylaxis latex [Latex] Allergy (Verified 11/08/18 12:50) ondansetron HCl [From Zofran] Allergy (Verified 11/08/18 12:50) Hives meperidine HCl [From Demerol] Adverse Reaction (Mild, Verified 11/08/18 12:50) Abnormal behavior Past Medical History - General Information source: Patient - Social History Smoking Status: Never Smoker Frequency of alcohol use: None Drug Abuse: None Lives with: Family Family History: Arthritis, CAD, CVA, DM, Hyperlipidemia, Hypertension, Malignancy, Other - Breast cancer history see above. Patient has suicidal ideation: No Patient has homicidal ideation: No Neurological Medical History: Reports: Hx Migraine, Hx Seizures Renal/ Medical History: Reports: Hx Ovarian Cysts. Denies: Hx Peritoneal Dialysis Skin Medical History: Reports Hx Cellulitis, Reports Hx MRSA Infectious Medical History: Reports: Hx MRSA Past Surgical History: Reports: Hx Oral Surgery - wisdom teeth, Hx Tonsillectomy - Immunizations Immunizations up to date: No Hx Diphtheria, Pertussis, Tetanus Vaccination: Yes - UTD Review of Systems - Review of Systems Notes: Constitutional: denies: Chills, Diaphoresis, Fever, Malaise, Weakness EENT: denies: Eye discharge, Blurred vision, Tearing, Double vision, Nose congestion, Nose discharge, Throat swelling, Mouth pain Cardiovascular: denies: Palpitations, Heart racing, Orthopnea, Dyspnea, Chest pain Respiratory: denies: Cough, Hurts to breathe, Wheezing, Shortness of breath Gastrointestinal: denies: Abdominal pain, Diarrhea, Nausea, Vomiting, Black stools, bright red blood in stool Genitourinary: denies: Burning, Dysuria, Discharge, Frequency, Flank pain, Hematuria Musculoskeletal: denies: Joint pain, Joint swelling, Muscle pain, Muscle stiffness, back pain Hematologic/Lymphatic: denies: Anemia, Easy bleeding, Easy bruising, Blood clots Neurological/Psychological: denies: Confusion, Dementia, Depression, Loss of consciousness and headache is reported Skin: No lesions, no masses, no skin breakdown, no abscesses Physical Exam - Vital signs Vitals: Temp Pulse Resp BP Pulse Ox 98.4 F 88 18 141/83 H 100 11/08/18 12:52 11/08/18 12:52 11/08/18 12:52 11/08/18 12:52 11/08/18 12:52 Interpretation: Normal - General General appearance: Appears well, Alert - HEENT Head: Normocephalic, Atraumatic Eyes: Normal Pupils: PERRL Sinus: Normal Neck: Normal. No: Meningismus - Respiratory Respiratory status: No respiratory distress Chest status: Nontender Breath sounds: Normal Chest palpation: Normal - Cardiovascular Rhythm: Regular Heart sounds: Normal auscultation Murmur: No - Abdominal Inspection: Normal Distension: No distension Bowel sounds: Normal Tenderness: Nontender Organomegaly: No organomegaly - Back Back: Normal, Nontender - Extremities General upper extremity: Normal inspection, Nontender, Normal color, Normal ROM, Normal temperature General lower extremity: Normal inspection, Nontender, Normal color, Normal ROM, Normal temperature, Normal weight bearing. No: Jackie's sign - Neurological Neuro grossly intact: Yes Cognition: Normal Orientation: AAOx4 [place] Coma Scale Eye Opening: Spontaneous [place] Coma Scale Verbal: Oriented [place] Coma Scale Motor: Obeys Commands Gunnar Coma Scale Total: 15 Speech: Normal Motor strength normal: LUE, RUE, LLE, RLE Sensory: Normal - Psychological Associated symptoms: Normal affect, Normal mood - Skin Skin Temperature: Warm Skin Moisture: Dry Skin Color: Normal Course - Re-evaluation Re-evalutation: 11/08/18 20:17 Based on patient's symptoms of spinal headache I have consulted with the anesthesiologist. They will come down shortly to attempt to do a blood patch. 11/08/18 20:22 Anesthesia is here. Has completed blood patch. Anticipate discharge shortly. - Vital Signs Vital signs: Temp Pulse Resp BP Pulse Ox 98.4 F 88 23 H 129/80 H 96 11/08/18 12:52 11/08/18 12:52 11/08/18 19:41 11/08/18 19:41 11/08/18 19:41 - Laboratory Result Diagrams: 11/08/18 15:07 11/08/18 15:07 Laboratory results interpreted by me: 11/08/18 11/08/18 15:07 15:07 Seg Neutrophils % 80.0 H Calcium 10.3 H Direct Bilirubin 0.5 H Albumin 5.1 H Discharge - Discharge Clinical Impression: Spinal puncture headache Condition: Good Disposition: HOME, SELF-CARE Instructions: Post-Spinal Headache ([facility]) Prescriptions: Butalb/Acetaminophen/Caffeine [Fioricet (50-325-40 mg) Tablet] 1 tab PO Q6HP PRN 3 Days #10 tab PRN Reason: Ondansetron [Zofran Odt 4 mg Tablet] 1 - 2 tab PO Q4H PRN #15 tab.rapdis PRN Reason: For Nausea/Vomiting Forms: Return to Work
[2018-11-08 20:39] VITALS: BP 135/79
== END 2018-11-08 20:39 | disposition home or self-care (01) ==
LOC: ER 12:31
DX: G97.1 Other reaction to spinal and lumbar puncture (principal); Y84.4 Aspiration of fluid as the cause of abnormal reaction of the patient, or of later complication, without mention of misadventure at the time of the procedure; Z88.0 Allergy status to penicillin; Z88.3 Allergy status to other anti-infective agents; Z91.040 Latex allergy status; Z86.14 Personal history of Methicillin resistant Staphylococcus aureus infection
CPT/HCPCS: 99284; 96361; 96374; 36415; 85025; 85610; 85730; 80053; J2765; J7030

== ENCOUNTER 2019-05-24 10:44 | Emergency (ER) | payer SELFPAY ==
[2019-05-24 10:51] VITALS: BP 135/79
--- NOTE | 2019-05-24 11:48 | RADIOLOGY REPORT (SQ) ---
EXAM DESCRIPTION: HAND RIGHT 3 VIEWS COMPLETED DATE/TIME: 05/24/2019 11:14 am REASON FOR STUDY: crushed in door COMPARISON: None. EXAM PARAMETERS: NUMBER OF VIEWS: Three views. TECHNIQUE: AP, lateral and oblique radiographic images acquired of the right hand. LIMITATIONS: None. FINDINGS: MINERALIZATION: Normal. BONES: No acute fracture or dislocation. No worrisome bone lesions. JOINTS: No effusions. SOFT TISSUES: No soft tissue swelling. No foreign body. OTHER: No other significant finding. IMPRESSION: NEGATIVE STUDY OF THE RIGHT HAND. NO RADIOGRAPHIC EVIDENCE OF ACUTE INJURY. TECHNICAL DOCUMENTATION: JOB ID: [id number] [employer]- All Rights Reserved Reading location - IP/workstation name: [email or web address]
--- NOTE | 2019-05-24 12:01 | ER Document Report ---
HPI - HPI Patient complains to provider of: right hand pain/injury Time Seen by Provider: 05/24/19 10:55 Onset: Yesterday Onset/Duration: Sudden, Persistent Quality of pain: Achy, Throbbing Severity: Moderate Pain Level: 3 Context: 28 Yr old female pt, with the listed pmh, here for right hand pain since yesterday after her small child accidentally slammed her hand in their car door. she is right handed. no numbness, weakness or tingling. no surgeries on this extremity. otc meds helping some. hasn't sought care until now. no pain anywhere else. pt able to walk. denies intoxication. pain worse with movement and palpation. better with rest. no hx of diabetes. denies . doesn't want anything for pain here. no other fall or trauma or associated sx - ROS Systems Reviewed and Negative: Yes All other systems reviewed and negative - to include 10 systems, unless mentioned in the hpi - REPRODUCTIVE Reproductive: DENIES: : Past Medical History - General Information source: Patient - Social History Smoking Status: Never Smoker Frequency of alcohol use: None Drug Abuse: None Lives with: Family Family History: Arthritis, CAD, CVA, DM, Hyperlipidemia, Hypertension, Malignancy, Other - Breast cancer history Patient has suicidal ideation: No Patient has homicidal ideation: No Neurological Medical History: Reports: Hx Migraine, Hx Seizures - pt takes no meds and states they are "emotional seizures" but tonic/clonic Endocrine Medical History: Denies: Hx Diabetes Mellitus Type 1, Hx Diabetes Mellitus Type 2, Hx Hypothyroidism Renal/ Medical History: Reports: Hx Ovarian Cysts. Denies: Hx Peritoneal Dialysis Musculoskeletal Medical History: Denies Hx Gout Skin Medical History: Reports Hx Cellulitis, Reports Hx MRSA Infectious Medical History: Reports: Hx MRSA Past Surgical History: Reports: Hx Oral Surgery - wisdom teeth, Hx Tonsillectomy - Immunizations Immunizations up to date: No Hx Diphtheria, Pertussis, Tetanus Vaccination: Yes - UTD Vertical Provider Document - CONSTITUTIONAL Agree With Documented VS: Yes Exam Limitations: No Limitations General Appearance: WD/WN Notes: GENERAL_APPEARANCE: alert and oriented x 3, mood and affect wnl, cooperative, no obvious discomfort. Pleasant, obese young white female who appears slightly older than stated age, smiling, speaking in full sentences, in no sign of resp distress, easily sitting up, appears uncomfortable with manipulation of her right hand otherwise nontoxic. no one is with her VITALS: reviewed, see vital signs table. HEAD: no_swelling\\tenderness on the head, normocephalic, atraumatic NECK: supple, no_neck_tenderness. full rom and full strength. HEART: RRR LUNGS: CTAB, good air exchange diffusely BACK: no_back_tenderness EXTREMITIES: good pulse in all extremities, right hand: dorsal aspect of the 2nd-4th distal carpals/metacarpals/proximal phalanges has no erythema, mild swelling and ecchymosis, mild-mod tenderness and no_abrasions\\lacerations other than as noted. 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 pt is able to make an 'ok' sign and touch her thumb to all fingers, and give a thumbs up. neg snuff box ttp. neg kanavel sign. no sign of flexor tenosynovitis. no sign of compartment syndrome. no sign of cellulitis or septic jt. Normal gait. 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 no subungual hematoma. brisk cap refill. no other shortening or rotation of the limb or obvious deformities to suggest trauma unless otherwise noted. no other swelling or ttp. SKIN: warm, dry, good_color. no rash. no other grossly visible overlying skin changes to suggest trauma NEURO: cerebellar function intact, motor_intact and sensory_intact in injured_extremity. cranial nerves 2-12 intact - INFECTION CONTROL TRAVEL OUTSIDE OF THE [place] IN LAST 30 DAYS: No Course - Re-evaluation Re-evalutation: 05/24/19 13:05 Pt here for right hand pain after her small child accidentally smashed it in her car door yesterday. She is right-handed. Her right hand x-ray was negative per radiology and reviewed by myself. She likely has a contusion. She does have some mild swelling and ecchymosis dorsally that extends into the proximal aspects of the 2nd and 3rd fingers minimally but there is no sign of compartment syndrome or tendon or nerve injury at this time. neg kanavel sign. no sign of flexor tenosynovitis. Advised symptomatic care. Rice therapy. She did not want anything for pain here. Advised Tylenol or ibuprofen at home for any pain. Advised since she does have some slight decreased range of motion in her fingers secondary to her pain and swelling currently that if she did not regain full range of motion of her fingers after the swelling went down she needs to be reevaluated by her PCP/hand surgeon for further work-up within the next week. She does request a work note as she works at [employer] which I did give her. advised to f/u with pcp in 1-2 days. return for any worsening symptoms. vss. well appearing. satting well on ra. neurononfocal. pt understands and agrees to plan. On reexam, pt remained stable. nontoxic. well appearing. pain controlled. tolerating po. requesting to go home. neurononfocal. Documentation achieved through voice recording which may lead to some occasional accidental typographical errors. Extensive efforts have been made to proof read documentation to make sure these are the least as possible. Category Date Time Status HAND RIGHT 3 VIEWS [RAD] Stat Exams 05/24/19 10:56 Completed - Vital Signs Vital signs: Temp Pulse Resp BP Pulse Ox 97.4 F 69 16 135/79 H 98 05/24/19 10:50 05/24/19 10:50 05/24/19 10:50 05/24/19 10:50 05/24/19 10:50 05/24/19 13:03 Temp Pulse Resp BP Pulse Ox 05/24/19 10:50 97.4 F 69 16 135/79 H 98 - Diagnostic Test Radiology reviewed: Image reviewed, Reports reviewed Radiology results interpreted by me: 05/24/19 13:02 Hand X-Ray 05/24/19 10:56 IMPRESSION: NEGATIVE STUDY OF THE RIGHT HAND. NO RADIOGRAPHIC EVIDENCE OF ACUTE INJURY. Discharge - Discharge Clinical Impression: Contusion of right hand Qualifiers: Encounter type: initial encounter Qualified Code(s): S60.221A - Contusion of right hand, initial encounter Condition: Good Disposition: HOME, SELF-CARE Instructions: Contusion ([facility]) Additional Instructions: Follow-up with PCP in 1 to 2 days. Return for any worsening symptoms. tylenol or motrin as needed for any pain if not allergic. ice to the area. Forms: Return to Work
== END 2019-05-24 12:04 | disposition home or self-care (01) ==
LOC: ER 10:44
DX: S60.221A Contusion of right hand, initial encounter (principal); M79.641 Pain in right hand; W23.1XXA Caught, crushed, jammed, or pinched between stationary objects, initial encounter; Z86.14 Personal history of Methicillin resistant Staphylococcus aureus infection
CPT/HCPCS: 99283

== ENCOUNTER 2020-05-04 21:03 | Emergency (ER) | payer MEDICAID ==
--- NOTE | 2020-05-04 22:25 | ER Document Report ---
ED Medical Screen (RME) - General Chief Complaint: Abscess Stated Complaint: ABSCESS/VAGINA Time Seen by Provider: 05/04/20 22:19 Primary Care Provider: BHARATI RAO MD [Primary Care Provider] - Follow up as needed TRAVEL OUTSIDE OF THE [place] IN LAST 30 DAYS: No - HPI Notes: 05/04/20 22:23 29-year-old female to the emergency department with complaints of a "knot" to her left labia that began about 2 to 3 days ago and has gotten worse. She states she is not seeing any drainage. She is never had any like this before. Of particular note, the patient is 16 weeks and has a nonviable . Her fetus has a severe form of spina bifida and she is scheduled on 11 May to have termination of this . This will be done at [place]. She is a . I performed a brief medical screening exam on the patient determined that the patient needs further evaluation and management by main side provider. I have placed initial orders to help expedite care. - Related Data Allergies/Adverse Reactions: amoxicillin [Amoxicillin] Allergy (Severe, Verified 11/08/18 12:50) Anaphylaxis cefaclor [From Ceclor] Allergy (Severe, Verified 11/08/18 12:50) Anaphylaxis erythromycin base [Erythromycin Base] Allergy (Severe, Verified 11/08/18 12:50) Anaphylaxis Penicillins Allergy (Severe, Verified 11/08/18 12:50) Anaphylaxis latex [Latex] Allergy (Verified 11/08/18 12:50) ondansetron HCl [From Zofran] Allergy (Verified 11/08/18 12:50) Hives meperidine HCl [From Demerol] Adverse Reaction (Mild, Verified 11/08/18 12:50) Abnormal behavior Past Medical History Neurological Medical History: Reports: Hx Migraine, Hx Seizures - pt takes no meds and states they are "emotional seizures" but tonic/clonic Endocrine Medical History: Denies: Hx Diabetes Mellitus Type 1, Hx Diabetes Mellitus Type 2, Hx Hypothyroidism Renal/ Medical History: Reports: Hx Ovarian Cysts. Denies: Hx Peritoneal Dialysis Musculoskeltal Medical History: Denies Hx Gout Skin Medical History: Reports Hx Cellulitis, Reports Hx MRSA Infectious Medical History: Reports: Hx MRSA Past Surgical History: Reports: Hx Oral Surgery - wisdom teeth, Hx Tonsillectomy - Immunizations Immunizations up to date: No Hx Diphtheria, Pertussis, Tetanus Vaccination: Yes - UTD Physical Exam - Vital signs Vitals: Temp Pulse Resp BP Pulse Ox 98.6 F 108 H 16 127/86 H 96 05/04/20 21:09 05/04/20 21:09 05/04/20 21:09 05/04/20 21:09 05/04/20 21:09 Course - Vital Signs Vital signs: Temp Pulse Resp BP Pulse Ox 98.6 F 108 H 16 127/86 H 96 05/04/20 21:09 05/04/20 21:09 05/04/20 21:09 05/04/20 21:09 05/04/20 21:09 Doctor's Discharge - Discharge Referrals: BHARATI RAO MD [Primary Care Provider] - Follow up as needed
[2020-05-05] MEDS: LIDOCAINE 1% INJ-PF (10 MG/ML) 30 ML SDV INJ ONE ×2 (00:04→01:03)
--- NOTE | 2020-05-05 00:20 | ER Document Report ---
ED General - General Chief Complaint: Vaginal Pain Stated Complaint: ABSCESS/VAGINA Time Seen by Provider: 05/04/20 22:19 Primary Care Provider: BHARATI RAO MD [Primary Care Provider] - Follow up as needed TRAVEL OUTSIDE OF THE [place] IN LAST 30 DAYS: No - HPI Notes: 29-year-old female presents with swelling to her left labia. Patient states she noticed that yesterday, she felt a knot, it was tender, it has grown in size. She denies any drainage from the area. Denies fever. Has not taken any medications at home. She did apply a hot pad to the area last night which did help with the pain. Of note patient is 16 weeks , she is due to have a termination of due to unsurvivable defect. - Related Data Allergies/Adverse Reactions: amoxicillin [Amoxicillin] Allergy (Severe, Verified 11/08/18 12:50) Anaphylaxis cefaclor [From Ceclor] Allergy (Severe, Verified 11/08/18 12:50) Anaphylaxis erythromycin base [Erythromycin Base] Allergy (Severe, Verified 11/08/18 12:50) Anaphylaxis Penicillins Allergy (Severe, Verified 11/08/18 12:50) Anaphylaxis latex [Latex] Allergy (Verified 11/08/18 12:50) ondansetron HCl [From Zofran] Allergy (Verified 11/08/18 12:50) Hives meperidine HCl [From Demerol] Adverse Reaction (Mild, Verified 11/08/18 12:50) Abnormal behavior Past Medical History - General Information source: Patient - Social History Smoking Status: Never Smoker Family History: Arthritis, CAD, CVA, DM, Hyperlipidemia, Hypertension, Malignancy, Other - Breast cancer history Patient has homicidal ideation: No Neurological Medical History: Reports: Hx Migraine, Hx Seizures - pt takes no meds and states they are "emotional seizures" but tonic/clonic Endocrine Medical History: Denies: Hx Diabetes Mellitus Type 1, Hx Diabetes Mellitus Type 2, Hx Hypothyroidism Renal/ Medical History: Reports: Hx Ovarian Cysts. Denies: Hx Peritoneal Dialysis Musculoskeletal Medical History: Denies Hx Gout Skin Medical History: Reports Hx Cellulitis, Reports Hx MRSA Infectious Medical History: Reports: Hx MRSA Past Surgical History: Reports: Hx Oral Surgery - wisdom teeth, Hx Tonsillectomy - Immunizations Immunizations up to date: No Hx Diphtheria, Pertussis, Tetanus Vaccination: Yes - UTD Review of Systems - Review of Systems Constitutional: denies: Fever EENT: No symptoms reported Cardiovascular: No symptoms reported Respiratory: No symptoms reported Gastrointestinal: No symptoms reported Genitourinary: denies: Dysuria Female Genitourinary: See HPI Musculoskeletal: No symptoms reported Skin: See HPI Neurological/Psychological: No symptoms reported Physical Exam - Vital signs Vitals: Temp Pulse Resp BP Pulse Ox 98.6 F 108 H 16 127/86 H 96 05/04/20 21:09 05/04/20 21:09 05/04/20 21:09 05/04/20 21:09 05/04/20 21:09 - General General appearance: Appears well, Alert In distress: None - HEENT Head: Normocephalic, Atraumatic Extraocular movements intact: Yes Pupils: PERRL - Respiratory Respiratory status: No respiratory distress - Cardiovascular Rhythm: Regular - Abdominal Inspection: Obese - Genitourinary Notes: There is a small area of fluctuance to the superior aspect of the left labia minora, there is an opening that is draining a purulent material, there is mild erythema. There is no abscess to the labia majora. No Bartholin's cyst present. - Extremities General lower extremity: No: Edema - Neurological Neuro grossly intact: Yes - Psychological Associated symptoms: Normal affect - Skin Skin Temperature: Warm Course - Re-evaluation Re-evalutation: 05/05/20 02:48 29 female with small abscess to left labia majora that is currently spontaneously draining. There are no other areas of abscess present. Currently no evidence of a cellulitis. Discussed with patient that given that is spontaneously draining and located on the labia minora, will not perform I&D at this time. She has OB follow-up upcoming. She was given a dose of clindamycin and discharged with same. Encouraged her to continue warm compresses or sit in warm bath. Continue Tylenol for pain. Patient stable at time of discharge, return precautions given. - Vital Signs Vital signs: Temp Pulse Resp BP Pulse Ox 98.7 F 70 20 134/76 H 99 05/05/20 01:16 05/05/20 01:16 05/05/20 01:16 05/05/20 01:16 05/05/20 01:16 Discharge - Discharge Clinical Impression: Labial abscess Condition: Stable Disposition: HOME, SELF-CARE Additional Instructions: Please begin course of clindamycin. Continue warm compress or sitting in warm bath. You may use Tylenol for pain. Follow-up with OB as planned. Return to the emergency department for any concerning worsening symptoms. Prescriptions: Clindamycin HCl 300 mg PO TID #30 capsule Referrals: BHARATI RAO MD [Primary Care Provider] - Follow up as needed
[2020-05-05] MEDS ORDERED: CLINDAMYCIN HCL 150 MG CAPSULE PO ONE (00:56)
[2020-05-05] MEDS ORDERED: ACETAMINOPHEN 325 MG TABLET PO ONE (01:02)
[2020-05-05 01:22] VITALS: BP 134/76
== END 2020-05-05 01:16 | disposition home or self-care (01) ==
LOC: ER 21:03
DX: N76.4 Abscess of vulva (principal); R10.2 Pelvic and perineal pain; Z88.0 Allergy status to penicillin; Z91.040 Latex allergy status; Z88.3 Allergy status to other anti-infective agents
CPT/HCPCS: 99283; J3490 ×2